=== PATIENT | female | born 1965 | race Caucasian/White ===

== ENCOUNTER 2016-09-09 13:41 | Emergency (ER) | payer OTHER ==
[~2016-09-09] VITALS: Ht 160 cm; Wt 73.2 kg
[~2016-09-09 13:41] MED LIST: ADVAIR 250/501 DISK IH; ALL DAY ALLERGY10 M2 PO; Advair 250/50 Diskus IH; BREO ELLIPTA I1 EACH IH; BUPROPION XL150 MG PO; BUTALB-APAP-CA1 EACH PO; CARAFATE1 GM PO; CITRATE OF MAG296 ML PO; COGENTIN0.5 MG PO; CONSTULOSE10 GM/15 M PO; DEPAKOTE; DEPAKOTE250 MG PO; DEPAKOTE500 MG PO; DESYREL 150 MG150 MG PO; DESYREL100 MG; DESYREL100 MG PO; DIAZEPAM5 MG PO; DICLOFENAC SOD100 G1 TP; DIVALPROEX SOD500 M1 PO; DUONEB 2.5-0.5 M3 ML IH; EMBEDA ER 30-11 EACH PO; EMBEDA ER 50-21 EACH PO; ENDOCET 5-3251 EACH PO; FENTANYL1 EAC4 TD; FIORICET,ESG1 TABLET PO; FLAGYL500 MG PO; FLEXERIL10 MG PO; FLUOXETINE HCL10 MG; HYDROCODON-ACE1 EAC7 PO; HYDROCODON-ACE1 EAC8 PO; HYOSCYAMINE0.125 M1 SL; HYOSCYAMINE0.125 MG PO; KENALOG,ARISTOC80 GM TP; KLONOPIN0.5 M1 PO; KLONOPIN1 MG PO; LACTULOSE10 GM/151 PO; LEVOFLOXACIN750 MG PO; LEXAPRO10 MG PO; LEXAPRO5 MG PO; Levaquin PO; MEDROL DOSEPAK4 MG PO; MELOXICAM15 MG PO; METHADONE5 MG PO; MORPHINE SULFAT15 M1 PO; MORPHINE SULFAT15 MG PO; Motrin PO; NAPROSYN500 MG PO; NEURONTIN600 MG PO; NORCO 10/3251 TABLET PO; ONDANSETRON ODT8 MG PO; OXAYDO5 MG PO; PERCOCET 5/31 TABLET PO; PRILOSEC40 MG PO; PROAIR HFA8.5 GM IH; PROTONIX40 MG PO; PROVENTIL,2.5 MG/3 M IH; PROZAC20 MG PO; RANITIDINE HCL150 MG PO; REQUIP0.5 MG PO; ROPINIROLE HCL0.5 MG PO; SIMVASTATIN; SIMVASTATIN40 M1 PO; SIMVASTATIN40 MG PO; SPIRIVA1 INHALATI IH; TEGRETOL; TEGRETOL200 MG PO; TIZANIDINE HCL2 MG PO; TRAZAMINE CONVE50 MG PO; VICODIN 5-3001 EACH PO; VICODIN ES 7.51 EAC1 PO; VIIBRYD10 MG PO; VIIBRYD40 MG PO; VITAMIN B122500 MCG PO; WELLBUTRIN SR150 MG PO; WELLBUTRIN XL150 MG PO; WELLBUTRIN100 MG PO; ZANAFLEX2 M1 PO; ZANAFLEX2 MG PO; ZANTAC150 MG PO; ZOFRAN ODT8 MG PO; ZOLPIDEM TARTRAT5 MG; [UNRECOGNIZED DRUG - REMARK]; [UNRECOGNIZED DRUG - REMARK]
[2016-09-09 15:16] LABS: HEMATOCRIT 36.4 % (36.0-46.0); MCH 29.5 PG (29.0-34.0); MCHC 32.7 G/DL (30.0-36.0); MCV 90.1 FL (83-99); MEAN PLAT.VOLUME 10.7 uM^3 (9.5-12.4); PLATELET COUNT 285 K/uL (156-360); RBC DIS.WIDTH-CV 13.1 % (11.8-14.6); RBC DIS.WIDTH-SD 43.6 % (39-53); RED BLOOD COUNT 4.04 M/uL (3.80-5.20); WHITE BLOOD COUNT 7.2 K/uL (4.1-10.2)
[2016-09-09 15:24] LABS: CHLORIDE 108 mEq/L (99-109); POTASSIUM 4.1 mEq/L (3.7-5.4); SODIUM 140 mEq/L (136-147)
[2016-09-09 15:26] LABS: GLUCOSE 88 mg/dL (70-99)
[2016-09-09 15:27] LABS: ANION GAP 8 MEQ/L (2-14)
[2016-09-09 15:29] LABS: GFR ESTIMATE (CALCULATED) > 59 mL/min/
[2016-09-09 15:30] LABS: UREA NITROGEN (BUN) 12 mg/dL (9-23)
[2016-09-09 15:44] LABS: QUANTITATIVE HCG < 4.0 MIU/ML
[2016-09-09 16:06] LABS: TROP-I INTERPRETATION NEGATIVE; TROPONIN-I < 0.01 ng/mL (0.0-0.30)
[2016-09-09 18:00] VITALS: BP 110/57
== END 2016-09-09 18:21 | disposition home or self-care (01) ==
LOC: EME 13:41
PROVIDERS: Physician Assistant
DX: T78.40XA Allergy, unspecified, initial encounter (principal); M71.58 Other bursitis, not elsewhere classified, other site; M79.602 Pain in left arm; M79.662 Pain in left lower leg; R51 Headache; E78.5 Hyperlipidemia, unspecified; J44.9 Chronic obstructive pulmonary disease, unspecified; G89.29 Other chronic pain; Z79.891 Long term (current) use of opiate analgesic; Z87.891 Personal history of nicotine dependence
CPT/HCPCS: 70450; 80048; 84484; 84702; 85027; 93005; 93971; 99281; 99284

== ENCOUNTER 2016-11-27 20:12 | Emergency (ER) | payer OTHER ==
[~2016-11-27] VITALS: Ht 160 cm; Wt 77.5 kg
[2016-11-27] MEDS ORDERED: MEDROL DOSEPAK4 MG PO (22:12)
[2016-11-27] MEDS ORDERED: VALIUM5 MG PO (22:12)
[2016-11-27 22:57] VITALS: BP 115/66
== END 2016-11-27 23:02 | disposition home or self-care (01) ==
LOC: EME 20:12
DX: M54.9 Dorsalgia, unspecified (principal); J44.9 Chronic obstructive pulmonary disease, unspecified; M79.7 Fibromyalgia; F31.9 Bipolar disorder, unspecified; E78.5 Hyperlipidemia, unspecified; K21.9 Gastro-esophageal reflux disease without esophagitis; Z87.891 Personal history of nicotine dependence
CPT/HCPCS: 99281; 99284; J2270; J7512

== ENCOUNTER 2017-12-10 18:14 | Emergency (ER) | payer OTHER ==
[~2017-12-10] VITALS: Ht 160 cm; Wt 70.0 kg
[~2017-12-10 18:14] MED LIST changes: +VALIUM5 MG PO
[2017-12-10 18:47] LABS: HEMATOCRIT 39.8 % (36.0-46.0); HEMOGLOBIN 13.7 G/DL (11.9-15.5); MCH 29.5 PG (29.0-34.0); MCHC 34.4 G/DL (30.0-36.0); MCV 85.6 FL (83-99); RBC DIS.WIDTH-CV 13.1 % (11.8-14.6); RBC DIS.WIDTH-SD 40.6 % (39-53); RED BLOOD COUNT 4.65 M/uL (3.80-5.20); WHITE BLOOD COUNT 8.7 K/uL (4.1-10.2)
[2017-12-10 18:50] LABS: ALBUMIN 4.4 g/dL (3.2-4.8)
[2017-12-10 18:51] LABS: CHLORIDE 109 mEq/L (99-109); SODIUM 139 mEq/L (136-147)
[2017-12-10 18:53] LABS: GLUCOSE 105 mg/dL (70-99); TOTAL PROTEIN 7.7 g/dL (6.4-8.3)
[2017-12-10 18:55] LABS: TOTAL BILIRUBIN 0.5 mg/dL (0.0-1.0)
[2017-12-10 18:56] LABS: ALKALINE PHOSPHATASE 149 IU/L (3-129)
[2017-12-10 18:57] LABS: CREATININE 1.1 mg/dL (0.6-1.3); GFR ESTIMATE (CALCULATED) 55 mL/min/
[2017-12-10 18:58] LABS: AST (GOT) 17 IU/L (2-34); UREA NITROGEN (BUN) 6 mg/dL (9-23)
[2017-12-10 19:00] LABS: ALT (GPT) 11 IU/L (3-49); LIPASE 23 U/L (1.0-51.0)
[2017-12-10 19:12] LABS: QUANTITATIVE HCG < 4.0 MIU/ML
[2017-12-10 19:30] LABS: PLAT.SUFFICIENCY ADEQUATE; PLATELET COUNT 353 K/uL (156-360)
[2017-12-10 20:26] LABS: APPEARANCE CLEAR ((CLEAR)); BILIRUBIN NEGATIVE; BLOOD NEGATIVE; COLOR YELLOW ((YELLOW)); GLUCOSE (STRIP) NEGATIVE; KETONES NEGATIVE; LEUKOCYTES NEGATIVE; NITRITE NEGATIVE; PROTEIN (STRIP) NEGATIVE; UCUL ADDED? NO; UROBILINOGEN 0.2 MG/DL (0.2-1.0)
[2017-12-10 20:28] LABS: SPECIFIC GRAVITY > 1.060 (1.000-1.030)
[2017-12-10] MEDS ORDERED: ZOFRAN ODT4 MG PO (20:39)
[2017-12-10] MEDS ORDERED: BENTYL10 MG PO (20:39)
[2017-12-10 21:19] VITALS: BP 111/70
== END 2017-12-10 21:20 | disposition home or self-care (01) ==
LOC: EME 18:14 → RME 18:14
DX: K52.9 Noninfective gastroenteritis and colitis, unspecified (principal); R51 Headache; J44.9 Chronic obstructive pulmonary disease, unspecified; E78.5 Hyperlipidemia, unspecified; Z88.2 Allergy status to sulfonamides; Z88.8 Allergy status to other drugs, medicaments and biological substances; F17.200 Nicotine dependence, unspecified, uncomplicated
CPT/HCPCS: 74177; 80053; 81003; 83630; 83690; 84702; 85027; 87493; 87506; 99281; 99284; J1200; J1885; J2765; J7030